=== PATIENT | male | born 1965 | race Caucasian/White ===

== ENCOUNTER → 2016-08-20 | Outpatient (CLI) | payer OTHER ==
[~2016-08-20] MED LIST: ACYC200CA PO; FENO67CA2 PO; LEVI20TA39 PO; LISI10TA4 PO; MULTCAP PO; SIMV80TA PO
--- NOTE | 2016-08-23 11:09 | SLEEPCENT ---
DATE OF PROCEDURE: 08/20/2016 ORDERED BY: Lyn Worrell and Dona Montgomery Nocturnal polysomnography was performed for evaluation of sleep apnea syndrome symptoms in this patient with a history of excessive somnolence and comorbidity of hypertension. 7 hours and 29 minutes of data were reviewed. There were 378 minutes of sleep identified. Sleep latency was prolonged at 35 minutes. Rapid eye movement (REM) latency was short at 64 minutes. Sleep architecture showed fragmentation. Overall sleep efficiency was fairly good at 85%. There were 4 REM periods appreciated. The patient's electrocardiogram (EKG) showed a sinus rhythm with an average heart rate of 72 beats per minute. Rate variability was seen surrounding respiratory events. Rate ranged 55 to 95 beats per minute. Electroencephalogram (EEG) showed normal waveforms for awake and sleep. There were 266 respiratory events identified of 10 seconds in duration or greater for an apnea-hypopnea index of 42.2. The events were primarily obstructive, but some central events were also scored. Events were not exclusive to sleep stage nor body posture. Arousals from respiratory events occurred 24.6 times per hour and oxygen desaturations were seen into the 70s. Remaining measures of sleep physiology were normal. IMPRESSION: Severe obstructive sleep apnea syndrome (G47.33), apnea-hypopnea index 42.2. RECOMMENDATION: The patient should be encouraged to return to the sleep disorder center for pressure therapy. In the interim, alcohol and sedative avoidance should be practiced and caution exercised during the operation of motor vehicles.
== END ==
LOC: M SLEEP 19:42
PROVIDERS: ATTEND Nurse Practitioner Adult Health
DX: G47.30 Sleep apnea, unspecified (principal)

== ENCOUNTER → 2016-08-27 | Outpatient (CLI) | payer OTHER ==
[~2016-08-27] VITALS: Ht 165.1 cm; Wt 89.4 kg
[~2016-08-27] MED LIST changes: +LIDOCAINE 2% INJ 100 MG/5 ML SDV (FOR ANES.) As Ordered ONE; +NS 1,000 ML IV SCH; +PROPOFOL 200 MG/20 ML VIAL As Ordered ONE
--- NOTE | 2016-08-27 15:08 | ROOR ---
Patient Name: Ney Carter Procedure Date: 08/27/2016 2:45 PM Date of : 1965 Age: 51 Room: [facility] Gender: Male Note Status: Finalized Procedure: Colonoscopy Indications: Screening for colorectal malignant neoplasm Providers: Vipul NUNO MD Referring MD: ROSSANA HERR NP Requesting Provider: Medicines: Monitored Anesthesia Care Complications: No immediate complications. Procedure: Pre-Anesthesia Assessment: - The heart rate, respiratory rate, oxygen saturations, blood pressure, adequacy of pulmonary ventilation, and response to care were monitored throughout the procedure. The Colonoscope was introduced through the anus and advanced to the cecum, identified by appendiceal orifice and ileocecal valve. The colonoscopy was performed without difficulty. The patient tolerated the procedure well. The quality of the bowel preparation was good. Findings: The perianal and digital rectal examinations were normal. Two sessile polyps were found in the ascending colon. The polyps were 4 to 5 mm in size. These polyps were removed with a cold snare. Resection and retrieval were complete. Three sessile polyps were found in the sigmoid colon. The polyps were 4 to 5 mm in size. These polyps were removed with a cold snare. Resection and retrieval were complete. To prevent bleeding after the polypectomy, one hemostatic clip was successfully placed (MR conditional). There was no bleeding at the end of the procedure. Small Internal Hemorrhoids. The exam was otherwise without abnormality. (Exam: Complete, Prep: Good or Excellent.) Impression: - (Exam: Complete, Prep: Good or Excellent.) - Two 4 to 5 mm polyps in the ascending colon, removed with a cold snare. Resected and retrieved. - Three 4 to 5 mm polyps in the sigmoid colon, removed with a cold snare. Resected and retrieved. Clip (MR conditional) was placed. - Small Internal Hemorrhoids. - The examination was otherwise normal. Recommendation: - Repeat colonoscopy in 3 years for surveillance. - Telephone endoscopist for pathology results in 2 weeks. Vipul Nuno MD Vipul NUNO MD 08/27/2016 3:08:17 PM This report has been signed electronically. Number of Addenda: 0 Note Initiated On: 08/27/2016 2:45 PM Estimated Blood Loss: Estimated blood loss: none.
[2016-08-27 15:33] VITALS: BP 161/72
== END ==
LOC: M OPP 12:53
PROVIDERS: ATTEND Internal Medicine Gastroenterology
DX: Z12.11 Encounter for screening for malignant neoplasm of colon (principal); D12.5 Benign neoplasm of sigmoid colon; D12.2 Benign neoplasm of ascending colon; K64.0 First degree hemorrhoids; I10 Essential (primary) hypertension; E78.5 Hyperlipidemia, unspecified; R12 Heartburn; G47.30 Sleep apnea, unspecified; R06.83 Snoring; M54.9 Dorsalgia, unspecified; Z87.891 Personal history of nicotine dependence; Z79.899 Other long term (current) drug therapy

== ENCOUNTER → 2017-10-01 | Outpatient (CLI) | payer OTHER | LOC: M SLEEP 19:46 | DX: G47.33 Obstructive sleep apnea (adult) (pediatric) (principal) ==

== ENCOUNTER 2021-01-18 18:56 | Emergency (ER) | payer OTHER ==
[~2021-01-18] VITALS: Ht 165.1 cm; Wt 96.2 kg
[~2021-01-18 18:56] MED LIST changes: +ACYC1CAP20 PO; -ACYC200CA PO; -LIDOCAINE 2% INJ 100 MG/5 ML SDV (FOR ANES.) As Ordered ONE; +LISI10TA22 PO; -LISI10TA4 PO; -NS 1,000 ML IV SCH; -PROPOFOL 200 MG/20 ML VIAL As Ordered ONE; -SIMV80TA PO; +SIMV80TA13 PO
[2021-01-18 19:39] LABS: BASO % 0.6 % (0.0-1.0); EOS # 0.1 10^3/uL (0.0-0.5); EOS % 1.8 % (0.0-3.0); HEMATOCRIT 37.7 % (42.0-52.0); HEMOGLOBIN 12.7 g/dl (13.5-17.5); LYMPH # 2.1 10^3/uL (1.5-5.0); LYMPH % 42.9 % (24.0-44.0); MEAN CORPUSCULAR HEMOGLOBIN 31.3 pg (27.0-33.0); MEAN CORPUSCULAR HGB CONC 33.7 g/dl (32.0-36.5); MEAN CORPUSCULAR VOLUME 92.9 fl (80.0-96.0); MONO # 0.4 10^3/uL (0.0-0.8); NEUTROPHILS # 2.3 10^3/uL (1.5-8.5); NEUTROPHILS % 46.5 % (36.0-66.0); PLATELET COUNT, AUTOMATED 254 10^3/uL (150-450); RED BLOOD COUNT 4.06 10^6/uL (4.30-6.10)
[2021-01-18] MEDS ORDERED: LORA-674 PO (19:44)
[2021-01-18] MEDS ORDERED: IBUP-1114 PO (19:44)
[2021-01-18] MEDS ORDERED: ACYC200C8 PO (19:44)
[2021-01-18] MEDS ORDERED: ASPIRIN 81 MG CHEW TABLET PO ONE (19:45)
--- NOTE | 2021-01-18 19:45 | REP ---
INDICATION: CHEST PAIN. COMPARISON: None. TECHNIQUE: Single portable AP view of the chest was performed. FINDINGS: There is no acute infiltrate or pulmonary edema. Lungs are clear. The heart is not significantly enlarged. The mediastinal silhouette is unremarkable. The visualized osseous structures are intact. IMPRESSION: No acute pulmonary disease. <Electronically signed by Bob Ramirez > 01/18/211940
[2021-01-18] MEDS ORDERED: ISOVUE-370 76% 100ML VIAL As Ordered ONE (19:53)
[2021-01-18 20:12] LABS: ALBUMIN 3.9 GM/DL (3.2-5.2); ALT/SGPT 31 U/L (12-78); BILIRUBIN,DIRECT < 0.1 MG/DL (0.0-0.2); BILIRUBIN,TOTAL 0.3 MG/DL (0.2-1.0); BLOOD UREA NITROGEN 23 MG/DL (7-18); CALCIUM LEVEL 8.9 MG/DL (8.5-10.1); CARBON DIOXIDE LEVEL 26 MEQ/L (21-32); CHLORIDE LEVEL 111 MEQ/L (98-107); CK-MB VALUE MASS < 1.0 NG/ML (<3.6); CPK CREATINE PHOSPHOKINASE 157 U/L (39-308); CREATININE FOR GFR 1.43 MG/DL (0.70-1.30); GLOMERULAR FILTRATION RATE 54.3 (>56); GLUCOSE, FASTING 89 MG/DL (70-100); LIPASE 159 U/L (73-393); MB/CK RELATIVE INDEX 0.64 (< OR =4); POTASSIUM SERUM 4.2 MEQ/L (3.5-5.1); SODIUM LEVEL 142 MEQ/L (136-145); TOTAL PROTEIN 6.9 GM/DL (6.4-8.2); TROPONIN I < 0.02 NG/ML (< 0.10)
--- NOTE | 2021-01-18 20:48 | REPVR ---
PROCEDURE INFORMATION: Exam: US Duplex Left Upper Extremity Veins, Limited Exam date and time: 01/18/2021 8:09 PM Age: 55 years old Clinical indication: Pain; Arm, upper; Left; Additional info: L arm pain R/O dvt TECHNIQUE: Imaging protocol: Real-time Duplex ultrasound of the Left Upper Extremity with 2-D guillermo scale, color Doppler flow and spectral waveform analysis with image documentation. Limited exam focused on the left upper extremity veins. COMPARISON: No relevant prior studies available. FINDINGS: Left deep veins: Unremarkable. Axillary and brachial veins are patent throughout without thrombus. Normal Doppler waveforms. Normal compressibility and/or augmentation response. Visualized internal jugular and subclavian veins are patent. Left superficial veins: Unremarkable. Visualized cephalic and basilic veins are patent without thrombus. Soft tissues: Unremarkable. IMPRESSION: No evidence of deep vein thrombosis. Electronically signed by: Timothy Whitfield On 01/18/2021 20:47:11 PM
--- NOTE | 2021-01-18 20:55 | REPVR ---
PROCEDURE INFORMATION: Exam: CTA Chest With Contrast Exam date and time: 01/18/2021 8:19 PM Age: 55 years old Clinical indication: Chest wall pain; Additional info: Chest pain R/O pe TECHNIQUE: Imaging protocol: Computed tomographic angiography of the chest with contrast. 3D rendering (Not supervised by radiologist): MIP and/or 3D reconstructed images were created by the technologist. Radiation optimization: All CT scans at this facility use at least one of these dose optimization techniques: automated exposure control; mA and/or kV adjustment per patient size (includes targeted exams where dose is matched to clinical indication); or iterative reconstruction. Contrast material: ISOVUE 370; Contrast volume: 75 ml; Contrast route: INTRAVENOUS (IV); COMPARISON: CT PORTABLE CHEST X-RAY 01/18/2021 7:23 PM FINDINGS: Pulmonary arteries: There is opacification of the pulmonary arteries and no evidence of pulmonary embolus. Aorta: There is opacification of the aorta which appears intact. Lungs: The new clear appearing lungs. Pleural spaces: There is no evidence of pneumothorax or pleural effusion. Heart: Unremarkable. No cardiomegaly. No pericardial effusion. Lymph nodes: The there is no evidence of mediastinal or hilar lymphadenopathy. Bones/joints: There is no evidence of fracture. Soft tissues: The the the the the the in is in there is no evidence of soft tissue abnormality. IMPRESSION: No evidence of pulmonary embolus. Electronically signed by: Timothy Whitfield On 01/18/2021 20:55:32 PM
--- NOTE | 2021-01-18 21:53 | ECGEPIP ---
[facility] - ED Test Date: 2021-01-18 Pat Name: EMILY ZAMORA Department: Room: - Gender: Male [employer]: Radha BARNARD : 1965 Requested By: MYA TORRES Order Number: [id number] Reading MD: Jovanny Evans Measurements Intervals [place] Rate: 78 P: 33 [place]: 142 QRS: 2 QRSD: 76 T: 66 QT: 382 QTc: 435 Interpretive Statements Normal sinus rhythm NO PRIORS FOR COMPARISON Electronically Signed on 01-18-2021 21:52:49 EDT by Jovanny Evans
[2021-01-19 01:45] VITALS: BP 124/71
[2021-01-19 01:53] LABS: CK-MB VALUE MASS < 1.0 NG/ML (<3.6); CPK CREATINE PHOSPHOKINASE 137 U/L (39-308); MB/CK RELATIVE INDEX 0.73 (< OR =4); TROPONIN I < 0.02 NG/ML (< 0.10)
--- NOTE | 2021-01-19 05:42 | ECGEPIP ---
[facility] - ED Test Date: 2021-01-19 Pat Name: EMILY ZAMORA Department: Room: - Gender: Male Director [employer] Agency: Radha BARNARD : 1965 Requested By: LAUREN Schmitz Order Number: [id number] Reading MD: Jovanny Evans Measurements Intervals [place] Rate: 75 P: 62 [place]: 152 QRS: 26 QRSD: 80 T: 74 QT: 402 QTc: 448 Interpretive Statements Normal sinus rhythm SIMILAR TO 01/18/21 Electronically Signed on 01-19-2021 5:41:32 EDT by Jovanny Evans
== END 2021-01-19 02:29 | disposition home or self-care (01) ==
LOC: M ED 18:56
DX: R07.9 Chest pain, unspecified (principal); I10 Essential (primary) hypertension; E78.5 Hyperlipidemia, unspecified; Z87.891 Personal history of nicotine dependence; Z79.899 Other long term (current) drug therapy
CPT/HCPCS: 36415; 71045; 71275; 80048; 80076; 82550; 82553; 83690; 85025; 93005; 93041; 93971; 94760; 99285; Q9967

== ENCOUNTER → 2022-04-07 | Outpatient (CLI) | payer OTHER ==
[~2022-04-07] MED LIST changes: +ACYC200C8 PO; +FENO67CA12 PO; -FENO67CA2 PO; +IBUP-1114 PO; +LORA-674 PO; +ZOCO80TA PO
== END ==
LOC: M LABSMTC 11:28
PROVIDERS: ATTEND Anesthesiology
DX: Z20.828 Contact with and (suspected) exposure to other viral communicable diseases (principal); Z11.59 Encounter for screening for other viral diseases

== ENCOUNTER 2022-04-12 07:38 | Day surgery (SDC) | payer OTHER ==
[~2022-04-12] VITALS: Ht 165.1 cm; Wt 94.3 kg
[~2022-04-12 07:38] MED LIST changes: +LIDOCAINE 2% 100MG/5ML SDV (FOR ANES.) As Ordered ONE; +NS 1,000 ML IV ONE; +propofoL 200 MG/20 ML VIAL As Ordered ONE
[2022-04-12 09:22] VITALS: BP 133/82
== END 2022-04-12 09:23 | disposition home or self-care (01) ==
LOC: M OPP 07:38
PROVIDERS: ATTEND Internal Medicine Gastroenterology
DX: Z12.11 Encounter for screening for malignant neoplasm of colon (principal); Z86.010 Personal history of colon polyps; D12.4 Benign neoplasm of descending colon; K57.30 Diverticulosis of large intestine without perforation or abscess without bleeding; K64.8 Other hemorrhoids; Z87.891 Personal history of nicotine dependence; Z79.02 Long term (current) use of antithrombotics/antiplatelets; Z79.1 Long term (current) use of non-steroidal anti-inflammatories (NSAID); Z79.899 Other long term (current) drug therapy; I10 Essential (primary) hypertension; G47.30 Sleep apnea, unspecified; Z99.89 Dependence on other enabling machines and devices

== ENCOUNTER → 2022-05-14 | Outpatient (REF) | payer OTHER ==
[~2022-05-14] MED LIST changes: -LIDOCAINE 2% 100MG/5ML SDV (FOR ANES.) As Ordered ONE; -NS 1,000 ML IV ONE; -propofoL 200 MG/20 ML VIAL As Ordered ONE
== END ==
LOC: M LAB REF 16:05
PROVIDERS: ATTEND Registered Nurse
DX: M25.50 Pain in unspecified joint (principal); E78.00 Pure hypercholesterolemia, unspecified

== ENCOUNTER → 2022-05-21 | Outpatient (REF) | payer OTHER | LOC: M LAB REF 16:10 | PROVIDERS: ATTEND Registered Nurse | DX: E78.00 Pure hypercholesterolemia, unspecified (principal) ==

== ENCOUNTER → 2022-06-06 | Outpatient (CLI) | payer OTHER | LOC: M RAD 11:08 | PROVIDERS: ATTEND Registered Nurse | DX: R22.1 Localized swelling, mass and lump, neck (principal) ==

== ENCOUNTER → 2022-06-20 | Outpatient (CLI) | payer OTHER ==
[~2022-06-20] MED LIST changes: +ISOVUE-370 76% 100ML VIAL As Ordered ONE
== END ==
LOC: M RAD 17:02
PROVIDERS: ATTEND Registered Nurse
DX: R22.1 Localized swelling, mass and lump, neck (principal)

== ENCOUNTER → 2022-08-22 | Outpatient (CLI) | payer OTHER ==
[~2022-08-22] MED LIST changes: -ISOVUE-370 76% 100ML VIAL As Ordered ONE
== END ==
LOC: M WUC 10:55
PROVIDERS: ATTEND Physician Assistant Medical
DX: M54.30 Sciatica, unspecified side (principal); M43.16 Spondylolisthesis, lumbar region

== ENCOUNTER → 2022-09-02 | Outpatient (REF) | payer OTHER ==
[~2022-09-02] MED LIST changes: -FENO67CA12 PO; +FENO67CA16 PO
[2022-09-03 04:10] LABS: LDL DIRECT 52 mg/dL (0-99)
== END ==
LOC: M LAB REF 12:20
PROVIDERS: ATTEND Physician Assistant Medical
DX: E78.00 Pure hypercholesterolemia, unspecified (principal)